=== PATIENT | male | born 1975 | race Caucasian/White ===

== ENCOUNTER 2022-12-15 16:55 | Inpatient (IN) | payer OTHER, SELFPAY ==
[2022-12-15 17:02] VITALS: BP 156/88; PULSE 51; RESP 17; TEMP 37.4; O2SAT 99; BMI 29.7
--- NOTE | 2022-12-15 17:10 | ED_ITS ---
HPI - Abdominal Pain General Chief Complaint: Abdominal Pain Stated Complaint: Poss appendicitis Time Seen by Provider: 12/15/22 17:09 Source: patient Mode of arrival: Family Vehicle Limitations: no limitations History of Present Illness HPI narrative: This is a 47-year-old male who presents with abdominal pain come right lower quadrant in nature that started last night about 5:00 p.m.. He is had a temp up to 100.2 F, no nausea or vomiting. He did have a bowel movement he describes it as dark but not black. No bright red blood. No dysuria urgency or frequency. Patient states he was massaging his belly to try to make it feel better and noticed right lower quadrant pain last night which has been persistent. He went to his primary care team they ordered a CT abdomen pelvis which showed appendicitis changes. Patient denies any medical issues otherwise. No daily medications. No prior surgeries other than vasectomy. No known drug allergies. No tobacco, 2-3 cans of beer nightly, no illicit. Related Data Home Medications Medication Instructions Recorded Confirmed No Known Home Medications 12/15/22 12/15/22 Allergies Allergy/AdvReac Type Severity Reaction Status Date / Time No Known Drug Allergies Allergy Verified 12/15/22 17:09 Review of Systems Review of Systems ROS Unobtainable: All systems reviewed & are unremarkable except as noted in HPI and below Patient History Social History household members: spouse Smoking Status: Never smoker alcohol intake: current Smoking Status: Never smoker alcohol intake frequency: 3 or more drinks per day Alcohol type: beer Substance Use Type: does not use Exam Narrative Exam Narrative: GENERAL: Alert and oriented x three, male in mild distress. HEENT: Head normocephalic, atraumatic, EOMI, pupils reactive, face symmetric, moist mucous membranes NECK: Supple, full range of motion CARDIOVASCULAR: Regular rate and rhythm without murmurs, rubs or gallops. RESPIRATORY: Breath sounds equal bilaterally, no wheezes rales or rhonchi. ABDOMEN: Soft, positive right lower quadrant tenderness. Normoactive bowel sounds all 4 quadrants. No guarding or rebound, rigidity, no mass : No CVA tenderness EXTREMITIES: Normal range of motion, no clubbing or edema. Neurovascularly intact NEUROLOGICAL: Cranial nerves II through XII grossly intact. Moving all e xtremities SKIN: Warm, dry, no petechiae, no rashes or lesions. Initial Vital Signs Initial Vital Signs: Vital Signs Temperature 99.3 F 12/15/22 17:02 Pulse Rate 51 L 12/15/22 17:02 Respiratory Rate 17 12/15/22 17:02 Blood Pressure 156/88 H 12/15/22 17:02 Pulse Oximetry 99 12/15/22 17:02 Oxygen Delivery Method Room Air 12/15/22 17:02 Course Orders Ordered: Acetaminophen (Acetaminophen 325 Mg Tablet) 650 mg PO Q6H [facility] Last Admin: 12/16/22 04:47 Dose: 650 mg Documented By: Admin: 12/16/22 00:13 Dose: Not Given Documented By: Admin: 12/15/22 20:16 Dose: 650 mg Documented By: RDAHA Celecoxib (Celecoxib 200 Mg Capsule) 200 mg PO BID [facility] Last Admin: 12/16/22 08:10 Dose: Not Given Documented By: JOSE LUIS Admin: 12/15/22 21:07 Dose: Not Given Documented By: Admin: 12/15/22 20:16 Dose: 200 mg Documented By: RADHA Gabapentin (Gabapentin 100 Mg Capsule) 300 mg PO BID [facility] Last Admin: 12/16/22 08:10 Dose: 300 mg Documented By: JOSE LUIS Admin: 12/15/22 20:16 Dose: 300 mg Documented By: RADHA Sodium Chloride (Normal Saline 0.9%) 1,000 mls @ 150 mls/hr IV CONT [facility] Last Infusion: 12/15/22 19:06 Dose: 0 mls/hr Documented By: Admin: 12/15/22 18:25 Dose: 150 mls/hr Documented By: DARREL Sodium Chloride (Normal Saline 0.45%) 1,000 mls @ 100 mls/hr IV CONT [facility] Last Admin: 12/16/22 04:50 Dose: 100 mls/hr Documented By: Infusion: 12/16/22 04:50 Dose: 100 mls/hr Documented By: Admin: 12/15/22 20:15 Dose: 100 mls/hr Documented By: RADHA Piperacillin Sod/Tazobactam (Sod 3.375 gm/ Sodium Chloride) 100 mls @ 25 mls/hr IV Q8H [facility] Last Infusion: 12/16/22 06:15 Dose: 0 mls/hr Documented By: Admin: 12/16/22 02:05 Dose: 25 mls/hr Documented By: Infusion: 12/15/22 19:06 Dose: 0 mls/hr Documented By: Admin: 12/15/22 18:27 Dose: 25 mls/hr Documented By: DARREL Morphine Sulfate (Morphine 4 Mg/Ml Inj) 3 mg IV Q4HR PRN PRN Reason: Pain, Severe (7-10) Naloxone HCl (Naloxone 0.4 Mg/Ml Vial) 0.2 mg IV Q2MIN PRN PRN Reason: Opiate Reversal Ondansetron HCl (Ondansetron 4 Mg/2 Ml Inj) 4 mg IV Q6HR PRN PRN Reason: Nausea And Vomiting Ondansetron HCl (Ondansetron 4 Mg/2 Ml Inj) 4 mg IV Q8HR PRN PRN Reason: Nausea And Vomiting Oxycodone HCl (Oxycodone Ir 5 Mg Tablet) 5 mg PO Q3H PRN PRN Reason: Pain, Moderate (4-6) Last Admin: 12/16/22 08:09 Dose: 5 mg Documented By: JOSE LUIS Admin: 12/16/22 04:48 Dose: 5 mg Documented By: Admin: 12/15/22 22:49 Dose: 5 mg Documented By: Admin: 12/15/22 19:01 Dose: 5 mg Documented By: JOSE Discontinued Medications Piperacillin Sod/Tazobactam (Sod 4.5 gm/ Sodium Chloride) 100 mls @ 200 mls/hr IV NOW ONE Stop: 12/15/22 17:10 Last Admin: 12/15/22 21:06 Dose: Not Given Documented By: RADHA Ketorolac Tromethamine (Ketorolac 30 Mg/Ml Vial) 15 mg IV Q6H [facility] Stop: 12/20/22 17:10 Scopolamine (Scopolamine 1 Patch) 1 patch TOP NOW ONE Stop: 12/15/22 17:42 Last Admin: 12/15/22 20:15 Dose: 1 patch Documented By: RADHA Vital Signs Vital signs: Vital Signs - 8 hr 12/15/22 17:02 Temperature 99.3 F Pulse Rate 51 L Respiratory Rate 17 Blood Pressure 156/88 H Pulse Oximetry 99 Oxygen Delivery Method Room Air MDM - Abdominal Pain Lab Data 12/15/22 17:21 12/15/22 19:01 Labs: Lab Results 12/15/22 Range/Units 17:21 WBC 9.6 (4.5-11.0) X10^3/uL RBC 4.60 (4.5-5.9) X10^6/uL Hgb 14.3 (13.5-17.5) g/dL Hct 40.2 L (41-53) % MCV 87.5 (80-100) fL MCH 31.2 (26-34) PG MCHC 35.6 (30-36) % RDW 14.0 (11.6-14.8) % Plt Count 138 L (150-400) X10^3/uL Neut % (Auto) 78.9 H (50-75) % Lymph % (Auto) 12.8 L (25-40) % [place] % (Auto) 7.7 (3-14) % Eos % (Auto) 0.2 L (2-4) % Baso % (Auto) 0.4 (0-2) % Neut # (Auto) 7600 H (8583-2334) /uL Lymph # (Auto) 1200 (3238-8650) /uL [place] # (Auto) 700 (0-900) /uL Eos # (Auto) 0 (0-450) /uL Baso # (Auto) 0 (0-100) /uL Imaging Data CT scan - abdomen/pelvis: Radiologist's Impression: Outpatient CT shows 1 cm dilated appendicitis, stranding, appendicolith and changes consistent with a appendicitis. CT imaging was pulled from [facility] I am able to review images as well as report. MDM Narrative Medical decision making narrative: 47-year-old male presents with complaint of right lower quadrant pain CT imaging does show appendicitis. Patient had had labs today CBC CMP and lipase were included. Patient states pain currently controlled but if has to wait till tomorrow for surgery would ask for PRN pain medication. Spoke with Dr. Kaur, general surgery: Patient accepted for surgery plan for 9 or 9:30 a.m. most likely in the OR tomorrow. Dr. Kaur has already reviewed his images. Discharge Plan Departure Patient Disposition: Admitted as Observation Clinical Impression: Acute appendicitis Admit Date/Time: 12/15/22 17:21 Admit Provider: Farhana Kaur
[2022-12-15 17:35] LABS: Add Manual Diff / Slide Review NO; Basophils Absolute Auto 0 /uL (0-100); Basophils Percent Auto 0.4 % (0-2); Eosinophils Absolute Auto 0 /uL (0-450); Eosinophils Percent Auto 0.2 % (2-4); Hematocrit 40.2 % (41-53); Hemoglobin 14.3 g/dL (13.5-17.5); Lymphocytes Absolute Auto 1200 /uL (1100-4500); Lymphocytes Percent Auto 12.8 % (25-40); Mean Corpuscular HGB Conc 35.6 % (30-36); Mean Corpuscular Hemoglobin 31.2 PG (26-34); Mean Corpuscular Volume 87.5 fL (80-100); Monocytes Absolute Auto 700 /uL (0-900); Monocytes Percent Auto 7.7 % (3-14); Neutrophils Absolute Auto 7600 /uL (1500-7000); Neutrophils Percent Auto 78.9 % (50-75); Platelet Count 138 X10^3/uL (150-400); White Blood Cell Count 9.6 X10^3/uL (4.5-11.0)
[2022-12-15 17:41] VITALS: BMI 29.7
[2022-12-15] MEDS: SODIUM CHLORIDE 0.9% 1,000 ML 150 ML IV (18:25)
[2022-12-15] MEDS: PIPERACILLIN/TAZO 3.375 GM in SODIUM CHLORIDE 0.9% 100 ML IV (18:27)
[2022-12-15] MEDS: OXYCODONE IR 5 MG TABLET PO ×2 (19:01→22:49)
[2022-12-15 19:31] LABS: Alanine Aminotransferase 28 IU/L (<50); Albumin Globulin Ratio 1.4 (1.0-2.8); Alkaline Phosphatase 51 U/L (38-126); Aspartate Aminotransferase 22 IU/L (17-59); BUN Creatinine Ratio 11.1 (6-22); Bilirubin Total 1.7 mg/dL (0.2-1.3); Blood Urea Nitrogen 9 mg/dL (9-20); Calcium 8.7 mg/dL (8.4-10.2); Carbon Dioxide 29 mmol/L (22-32); Chloride 101 mmol/L (98-107); Estimated Glomerular Filt Rate > 60 mL/min (>60); Globulin 2.8 g/dL (1.7-4.1); Glucose 99 mg/dL (70-100); HEMOLYSIS < 15 (0-50); Lipase 23 U/L (23-300); Potassium 3.9 mmol/L (3.4-5.1); Sodium 136 mmol/L (137-145); Total Protein 6.8 g/dL (6.3-8.2)
[2022-12-15 20:00] VITALS: BP 141/84; PULSE 90; RESP 18; TEMP 37.5; O2SAT 98
[2022-12-15] MEDS: SODIUM CHLORIDE 0.45% 1,000 ML 100 ML IV (20:15)
[2022-12-15] MEDS: SCOPOLAMINE 1 PATCH TOP (20:15)
[2022-12-15] MEDS: CELECOXIB 200 MG CAPSULE PO (20:16)
[2022-12-15] MEDS: GABAPENTIN 100 MG CAPSULE 300 MG PO (20:16)
[2022-12-15] MEDS: ACETAMINOPHEN 325 MG TABLET 650 MG PO (20:16)
[2022-12-15 21:17] LABS: MRSA (Nasal) PCR Not Detected (Not Detect)
--- NOTE | 2022-12-15 21:34 | PC.ADMIT ---
[address] Admission Note: The patient,Abraham Hopkins,47 y/o, was given written information regarding hospital policies, unit procedures and contact persons. Patient's smoking status: Never smoker. Vital Signs - 8 hr 12/15/22 17:02 12/15/22 20:00 12/15/22 20:00 Temperature 99.3 F 99.5 F Pulse Rate 51 L 90 Respiratory Rate 17 18 Blood Pressure 156/88 H 141/84 H Pulse Oximetry 99 98 Oxygen Delivery Method Room Air Room Air Oxygen Flow Rate 0 12/15/22 20:00 Temperature Pulse Rate Respiratory Rate Blood Pressure Pulse Oximetry 98 Oxygen Delivery Method Room Air Oxygen Flow Rate Patient admitted to Room 226 at 1930, A/Ox4, ambulating to bed. IVF started as ordered, scheduled PO meds given with pudding, denies nausea, Scop patch placed behind Rt ear. Oxycodone given in ED prior to admit, rates pain 33-4/10. VSS. Educated to room and Plan of Care for night. at bedside, will take wallet and valuable with her.
[2022-12-16] VITALS (19 sets, daily range): BP systolic 100–127; BP diastolic 59–85; PULSE 74–105; RESP 12–20; TEMP 36.7–39.3; O2SAT 92–96; BMI 29.8
--- NOTE | 2022-12-16 | PATH_ITS ---
[facility] Accession Number: [id number] No. of containers..01 Tissue . 01 Material submitted: . appendix - APPENDIX . 01 Diagnosis: Vermiform Appendix, Appendectomy: Acute transmural appendicitis and periappendicitis with perforation. Negative for neoplasia. MRV 12/28/20222020 Local . 01 Electronically signed: . Farhana Karimi MD, Pathologist NPI- [id number] . 01 Gross description: . The specimen is received in formalin labeled with the patient's name, , and appendix and consists of a vermiform appendix measuring 6.6 cm in length x 0.9 cm in average diameter with mesoappendix extending out to 1.7 cm. The serosa is diffusely roughened with a full-thickness defect noted measuring 0.2 cm in greatest dimension. The margin is inked blue. Sectioning reveals the lumen to be filled with red-brown semi-solid material and average 0.3 cm in diameter. The wray are crowell-salguero and average 0.3 cm thick with no lesions grossly identified. Division Operations Manager sections to include the margin, one-half of the bisected distal tip, and cross-section of area of perforation are submitted in cassette A1. ([id number]) /[facility] 12/17/20222 Local . 01 Pathologist provided ICD-10: K35.80 . 01 CPT . 638224 Specimen Comment: A courtesy copy of this report has been sent to [phone] Performed at: 01 [facility] [address] [place] [address] Suite [facility], [place], [place] [id number] MD Ja Montes MD Phone: [phone]
[2022-12-16] MEDS: PIPERACILLIN/TAZO 3.375 GM in SODIUM CHLORIDE 0.9% 100 ML IV ×3 (02:05→18:54)
[2022-12-16] MEDS: ACETAMINOPHEN 325 MG TABLET 650 MG PO ×4 (04:47→23:10)
[2022-12-16] MEDS: OXYCODONE IR 5 MG TABLET PO ×5 (04:48→20:35)
[2022-12-16] MEDS: SODIUM CHLORIDE 0.45% 1,000 ML 100 ML IV (04:50)
--- NOTE | 2022-12-16 08:00 | PM.HP.1 ---
History of Present Illness History of Present Illness Date Patient Seen: 12/16/22 Time Patient Seen: 08:00 Date of Onset of Symptoms: 12/14/22 Chief complaint: Poss appendicitis Narrative: Abdominal pain starting Wednesday. Sharp and focal to RLQ, did not improve. [place] unwell. [facility]scan at [facility] that I reviewed shows appendicitis with possible perforation, no abscess, no phlegmon. PFS Social History household members: spouse Smoking Status: Never smoker alcohol intake: current Meds Home Medications and Allergies Home Medications Medication Instructions Recorded Confirmed Type No Known Home Medications 12/15/22 12/15/22 History Allergies Allergy/AdvReac Type Severity Reaction Status Date / Time No Known Drug Allergies Allergy Verified 12/15/22 17:09 Review of Systems Review of Systems ROS: Yes All systems reviewed with the patient and are negative except as otherwise documented Exam Vital Signs (past 8 hours): - 12/16/22 04:47 12/16/22 04:48 12/16/22 04:00 Temperature 102.8 F H 102.8 F H 102.3 F H Pulse Rate 105 H Respiratory Rate 17 Blood Pressure 127/69 Pulse Oximetry 94 Oxygen Flow Rate 0 12/16/22 06:26 12/16/22 05:25 12/16/22 05:15 Temperature 99.0 F 101.4 F H 101.0 F H Pulse Rate Respiratory Rate Blood Pressure Pulse Oximetry Oxygen Flow Rate Oxygen Delivery Method Room Air Oxygen Flow Rate 0 Const General: cooperative and healthy appearing Nutritional Appearance: average body habitus [facility] Head: normocephalic and atraumatic Ears: hearing grossly normal bilaterally Eyes Sclera: sclerae normal Neck Neck: trachea midline Resp Effort & Inspection: normal respiratory effort and able to speak in complete sentences Cardio Rate: regular rate GI Palpation: soft and tender (RLQ focal tenderness) Skin General: turgor normal Neuro General: patient alert, patient awake and patient oriented x3 Cognition: normal cognition Psych Mental Status: mental status grossly normal Judgment: judgment good Objective Labs 12/15/22 17:21 12/15/22 19:01 Labs: Laboratory Results - last 24 hr 12/15/22 12/15/22 12/15/22 17:21 19:01 19:54 WBC 9.6 RBC 4.60 Hgb 14.3 Hct 40.2 L MCV 87.5 MCH 31.2 MCHC 35.6 RDW 14.0 Plt Count 138 L Neut % (Auto) 78.9 H Lymph % (Auto) 12.8 L [place] % (Auto) 7.7 Eos % (Auto) 0.2 L Baso % (Auto) 0.4 Neut # (Auto) 7600 H Lymph # (Auto) 1200 [place] # (Auto) 700 Eos # (Auto) 0 Baso # (Auto) 0 Sodium 136 L Potassium 3.9 Chloride 101 Carbon Dioxide 29 BUN 9 Creatinine 0.81 Estimated GFR > 60 BUN/Creatinine Ratio 11.1 Glucose 99 Calcium 8.7 Total Bilirubin 1.7 H AST 22 ALT 28 Alkaline Phosphatase 51 Total Protein 6.8 Albumin 4.0 Globulin 2.8 Albumin/Globulin Ratio 1.4 Lipase 23 Nasal Screen MRSA (PCR) Not detected Assessment & Plan Assessment & Plan narrative: Appendicitis with possible rupture. Plan: Lap appy Time Spent With Patient Time with patient: less than 30 minutes Quality VTE Deep Vein Thrombosis/Pulmonary Embolism Present on Admission: No
[2022-12-16] MEDS: GABAPENTIN 100 MG CAPSULE 300 MG PO ×2 (08:10→20:34)
[2022-12-16] MEDS: CELECOXIB 200 MG CAPSULE PO ×2 (09:26→20:34)
[2022-12-16] MEDS: LACTATED RINGERS 1,000 ML 42 ML IV (10:24)
--- NOTE | 2022-12-16 10:28 | SUR.HOLD ---
Oral temperature 102.2; asymptomatic; notified CURTIS Dia. Verbal orders to give next dose of Tylenol 650 mg po.
--- NOTE | 2022-12-16 11:21 | SUR.OPER ---
Supine on padded OR bed, head on pillow, left arm padded and tucked at side, legs uncrossed, safety belt at thigh, tape over blanket over lower legs .
[2022-12-16] MEDS: BUPIVACAINE 0.5% (PF) 30 ML, EPINEPHrine 0.15 MG INJ (11:29)
--- NOTE | 2022-12-16 11:46 | P.OP_ITS ---
Operative Date/Time/Diagnoses Date of procedure: 12/16/22 Time of procedure: 11:46 Pre-op diagnosis: Ruptured appendicitis Post-op diagnosis: same Procedure & Clinicians Procedure: Laparoscopic appendectomy Same procedure as scheduled: Yes Indications: Ruptured appendicitis Surgeon: Farhana Kaur Screen Cutter And Trimmer: Rod Jo Anesthesia Type: General and Local Operative Notes Findings: Ruptured appendicitis, contained Closure Type: primary Specimen(s): none sent (Appendix) Applied: drain(s) (#15 ) Estimated Blood Loss (mL): 30 Blood products transfused: none Procedure in detail: Preop diagnosis: Ruptured appendicitis Postop diagnosis: Same Operative procedure: Laparoscopic appendectomy Surgeon: Zarina Kaur MD triage assistant: CHATO Zimmer Anesthetic: General with ET tube intubation along with local Findings: Gangrenous, contained ruptured appendicitis Procedure: Patient placed in a supine position. Prepped and draped sterile fashion to expose his abdomen. Infraumbilical port site placed using open technique a 12 mm port. Insufflation began all other ports placed under direct vision. This included a 5 mm port in the suprapubic area and a 5 mm port in the left lower abdomen. Appendix was identified to be in a retrocolic position. Attempts were made to mobilize the appendix with much difficulty, I then chose to do a window at the base of the appendix amputate with AMPARO stapling device, and proceed with a retrograde mobilization. Mesentery was taken down with electrocautery. We had good hemostasis at the end of the procedure. I have some concerns of the staple line in that the micro perforation was in close proximity. However the integrity appears to be solid. Surrounding blood and purulent material was addressed by suction but not irrigation. I also placed a 15 Khmer drain into the pelvis extending up along the right colic gutter. I then removed all ports after having placed the appendix into an Endo-Catch bag pulled through the infraumbilical port site intact. Closure consisted of interrupted 0 Vicryl for fascial closure of the infraumbilical port site. Skin was closed a running 4-0 Monocryl. Steri-Strips and sterile dressings were placed. Patient was awakened, extubated, taken to recovery room in stable condition. Needle, instrument, sponge counts were correct. Blood loss: 30 mL Specimen: Appendix Complications: none Post-operative Condition: stable Disposition: PACU
--- NOTE | 2022-12-16 15:31 | CM.DANOTE ---
DCP Assessment Note; Patient is a 47yo male here following acute appendicitis and a lap appy with Dr. Kaur on 12/16. PCP Dr Renee Payer family health plan and self pay NURSE COORDINATOR reviewed EMR. NURSE COORDINATOR entered room and introduced self and role. Patient was sitting up in bed and appeared A/Ox4. Patient was accompanied by spouse Nisha ([phone]). Patient is active and independent at baseline. Lives at home with spouse and 2 sons, 10 and 11 yrs old (currently staying with a family friend). Patient reports eager to go home. can transport in POV. Patient was hold he would d/c home tomorrow, 12/17. No needs. Plan: dc home with spouse when medically stable, no needs at this time. CM team will continue to follow as needed. EVARISTO Condon Discharge Planning/Care Management CM Discharge Assessment Start: 12/16/22 15:29 Freq: Status: Active Protocol: Document 12/16/22 15:29 (Rec: 12/16/22 15:31 [id number]) Discharge Planning Assessment Assigned Customer Retention Specialist EVARISTO Paz DPOA/Assigned Designee Name Nisha (spouse) Contact Information [phone] Advance Directives? No History Provided By Patient,Family Member,Medical Record Prior Living Arrangements House Household Members spouse,children Comment spouse and their 10 and 11yr old children Type of transporation used prior to Drives own vehicle admit Independent with ADL's Yes Is patient alert and oriented? Yes Barriers to Discharge No Discharge Plan Home Transportation Arrangement family in POV Whiteboard Updated in Patient Room with Yes name and ext. # of Customer Retention Specialist Review Status In Process Next Review Type Continued Stay Review
--- NOTE | 2022-12-16 16:03 | PC.NURSE ---
Resumed care of patient at 1600 upon dowgrade and room transfer from the ICU to room 203. VSS, afebrile on RA. He reports pain8/10 had just received 5mg oxycodone po at 1545 prior to transfer. He is A&OX4, ambulatory, ice pack to abdomen. Continuous monitoring.
--- NOTE | 2022-12-16 18:48 | PC.NURSE ---
Pre/Post op note Pt. down to PACU approx. 1005. Returned to room 226 approx. 1235 in stable condition. VS stable/at baseline. Reporting pain 7-8/10 in lower abdominal area at drain site, given PRN Oxycodone + ice pack and given instructions on splinting abdomen with pillow which helped alleviate pain. Up to bathroom w/ some increase in pain, decreased when back to bed. Transferred pt. to room 203, report given to RN.
[2022-12-16] MEDS: METOCLOPRAMIDE 10 MG/2 ML INJ IV (18:57)
[2022-12-16] MEDS: polyethylene glycoL 3350 17 GM POWD.PACK PO (21:37)
[2022-12-17] MEDS: PIPERACILLIN/TAZO 3.375 GM in SODIUM CHLORIDE 0.9% 100 ML IV ×2 (02:10→10:52)
[2022-12-17] MEDS: ACETAMINOPHEN 325 MG TABLET 650 MG PO ×2 (05:34→11:53)
[2022-12-17] MEDS: OXYCODONE IR 5 MG TABLET PO ×3 (05:35→13:46)
[2022-12-17 05:41] VITALS: BP 100/61; PULSE 65; RESP 18; TEMP 37.1; O2SAT 98
[2022-12-17 06:08] LABS: Add Manual Diff / Slide Review NO; Basophils Absolute Auto 0 /uL (0-100); Eosinophils Absolute Auto 0 /uL (0-450); Hematocrit 34.4 % (41-53); Hemoglobin 12.2 g/dL (13.5-17.5); Lymphocytes Absolute Auto 500 /uL (1100-4500); Lymphocytes Percent Auto 5.6 % (25-40); Mean Corpuscular HGB Conc 35.5 % (30-36); Mean Corpuscular Hemoglobin 31.4 PG (26-34); Mean Corpuscular Volume 88.4 fL (80-100); Monocytes Absolute Auto 500 /uL (0-900); Monocytes Percent Auto 5.2 % (3-14); Neutrophils Absolute Auto 8400 /uL (1500-7000); Neutrophils Percent Auto 89.2 % (50-75); Platelet Count 114 X10^3/uL (150-400); Red Blood Cell Count 3.89 X10^6/uL (4.5-5.9); Red Cell Distribution Width 14.2 % (11.6-14.8); White Blood Cell Count 9.4 X10^3/uL (4.5-11.0)
[2022-12-17] MEDS: CELECOXIB 200 MG CAPSULE PO (08:42)
[2022-12-17] MEDS: GABAPENTIN 100 MG CAPSULE 300 MG PO (08:42)
[2022-12-17] MEDS: polyethylene glycoL 3350 17 GM POWD.PACK PO (08:43)
[2022-12-17 13:00] VITALS: BP 100/51; PULSE 74; RESP 16; O2SAT 97
--- NOTE | 2022-12-17 14:33 | PM.PNPO.1 ---
Subjective Subjective Date Patient Seen: 12/17/22 Time Patient Seen: 14:33 Interval history: feels good Exam Vital Signs (past 8 hours): Oxygen Delivery Method Room Air Oxygen Flow Rate 0 Narrative Exam Narrative: abdomen benign and drain is serosang Objective Labs 12/17/22 05:45 12/15/22 19:01 Labs: Laboratory Results - last 24 hr 12/17/22 05:45 WBC 9.4 RBC 3.89 L Hgb 12.2 L Hct 34.4 L MCV 88.4 MCH 31.4 MCHC 35.5 RDW 14.2 Plt Count 114 L Neut % (Auto) 89.2 H Lymph % (Auto) 5.6 L [place] % (Auto) 5.2 Eos % (Auto) 0.0 L Baso % (Auto) 0.0 Neut # (Auto) 8400 H Lymph # (Auto) 500 L [place] # (Auto) 500 Eos # (Auto) 0 Baso # (Auto) 0 PFSH Social History household members: spouse and children Smoking Status: Never smoker alcohol intake: current Assessment & Plan Post-op Postoperative Procedures: Procedures Operation Date: 12/16/22 10:30 Actual Procedure Side Surgeon p Laparoscopic Appendectomy Not Applicable Farhana Kaur MD Postoperative day: 1 Postoperative status: doing well Postoperative plan narrative: Remove drain switch to po antibiotics for 5 days discharge home Quality VTE Deep Vein Thrombosis/Pulmonary Embolism Present on Admission: No
--- NOTE | 2022-12-17 14:34 | P.DS_ITS ---
History of Present Illness History of Present Illness Date Patient Seen: 12/17/22 Time Patient Seen: 14:35 Date of Onset of Symptoms: 12/14/22 Chief complaint: Poss appendicitis Narrative: Abdominal pain starting Wednesday. Sharp and focal to RLQ, did not improve. [place] unwell. [facility]scan at [facility] that I reviewed shows appendicitis with possible perforation, no abscess, no phlegmon. Discharge Providers Provider Date of admission: 12/15/22 17:21 Discharge Date: 12/17/22 Discharge provider: Farhana Kaur MD Summary Hospital Course Discharge Diagnosis: ruptured appendicitis Hospital Course: OR for lap appy, IV antibiotics Status at Discharge Cognitive/behavioral status at discharge: at baseline, oriented Functional status at discharge: independent ambulation Overall status at discharge: patient is progressing back to baseline Time Spent with Patient Time spent: Less than 30 minutes Exam Vital Signs (past 8 hours): Oxygen Delivery Method Room Air Oxygen Flow Rate 0 Narrative Exam Narrative: abdomen benign Objective Labs 12/17/22 05:45 12/15/22 19:01 Labs: Laboratory Results - last 24 hr 12/17/22 05:45 WBC 9.4 RBC 3.89 L Hgb 12.2 L Hct 34.4 L MCV 88.4 MCH 31.4 MCHC 35.5 RDW 14.2 Plt Count 114 L Neut % (Auto) 89.2 H Lymph % (Auto) 5.6 L [place] % (Auto) 5.2 Eos % (Auto) 0.0 L Baso % (Auto) 0.0 Neut # (Auto) 8400 H Lymph # (Auto) 500 L [place] # (Auto) 500 Eos # (Auto) 0 Baso # (Auto) 0 PFSH Social History household members: spouse and children Smoking Status: Never smoker alcohol intake: current Discharge Assessment & Plan Assessment and Plan Assessment: s/p lap appy for ruptured appendicitis Plan of Treatment: home on 5 days Augmentin Discharge Plan Discharge Plan Patient Disposition: Home Discharge orders & Medications Prescriptions: New celecoxib [Celebrex] 200 mg Capsule 200 mg PO BID Qty: 20 0RF amoxicillin-pot clavulanate 875-125 mg Tablet 1 tab PO BID Qty: 10 0RF oxycodone 5 mg Tablet 5 mg PO Q3H PRN (Reason: Pain, Moderate (4-6)) Qty: 15 0RF Follow up/Referrals: Farhana Kaur MD [Physician] - Diet/Activity/Treatments Diet: Diet as Tolerated Visit Report/Discharge Packet Instructions: DI for an Appendectomy, DI for Laparoscopy, DI for Prescription Opioid Use Stand Alone Forms: Patient Portal/API, Surgery Discharge Discharge Data Attending Provider: Farhana Kaur Admit Date/Time: 12/15/22 17:21 Quality VTE Deep Vein Thrombosis/Pulmonary Embolism Present on Admission: No
--- NOTE | 2022-12-17 16:33 | PC.NURSE ---
Day shift: Discharge instructions gone over with patient. Pt stated understanding. Pulled HAILY drain and placed gauze + tegaderm over the top. Minimal drainage. All other lap incision sites CDI. PIV d/c'ed prior to discharge. Pt has all belongings with him and escorted to exit via w/c with BRENNEN Angelo where Pt's picked him up.
== END 2022-12-17 15:30 | disposition home or self-care (01) | DRG 340 ==
LOC: ED 17:09 → AC 17:22 → ICU 18:04 → AC 12-17 08:47 → ICU 03-10 15:01
PROVIDERS: Admitting Provider Surgery; Emergency Provider Emergency Medicine; Referring Provider Emergency Medicine; Visit Provider Surgery
PROC: 0DTJ4ZZ Resection of Appendix, Percutaneous Endoscopic Approach (ICD-10-PCS; CPT 44970; principal; 2022-12-16 10:30)
DX: K35.32 Acute appendicitis with perforation, localized peritonitis, and gangrene, without abscess (principal)
CPT/HCPCS: 44970; 36415; 36592; 80053; 83690; 85025; 87797; 96361; 96365; 96366; 96375; 99221; 99282; 99284; G0378; J0171; J0330; J1100; J2405; J2543; J2704; J2765; J3010; J7050

== ENCOUNTER → 2022-12-31 14:57 | Outpatient (CLI) | payer OTHER, SELFPAY ==
[2022-12-15 17:41] VITALS: BMI 29.7
--- NOTE | 2022-12-31 14:59 | DI.CT.S_ITS ---
PROCEDURE: CT ABDOMEN PELVIS W CON INDICATIONS: abdominal pain after appendectomy TECHNIQUE: After the administration of intravenous contrast, axial sections acquired from the lung bases to the pubic symphysis. Coronal and sagittal reformats were performed. For radiation dose reduction, the following was used: automated exposure control, adjustment of mA and/or kV according to patient size. COMPARISON: [facility], CT, CT ABDOMEN PELVIS WITH CONTRAST, 12/15/2022, 14:11. FINDINGS: Image quality: Excellent. Lung bases: Unremarkable. Heart: No significant findings. ABDOMEN: Liver: Unremarkable. Gallbladder: Unremarkable. Biliary ducts: Unremarkable. Pancreas: Unremarkable. Spleen: Unremarkable. Adrenal Glands: Unremarkable. Kidneys and Ureters: Unremarkable. Bowel and peritoneum: Postsurgical changes are seen from recent appendectomy. There is ill-defined inflammatory fat stranding and edema as well as a small amount of fluid adjacent to the surgical site. No well-defined peripherally enhancing fluid collection is seen. The area of edema/fluid measures up to 7.0 x 5.9 x 4.2 cm in maximum dimensions. Mild bowel wall thickening is seen in the adjacent cecal tip, which is likely reactive. There is no pneumoperitoneum. A few diverticula are seen at the sigmoid colon. No signs of small bowel obstruction. Ventral Wall: No hernias. Abdominal Nodes: No retroperitoneal or mesenteric adenopathy by size criteria. Vessels: Aorta and inferior vena cava are normal in size. PELVIS: Pelvic Organs: Unremarkable. Bladder: Unremarkable. Pelvic Nodes: No enlarged lymph nodes. Miscellaneous: No hernias are seen. Bones: Mild degenerative changes are seen in the spine. IMPRESSION: Postsurgical changes from recent appendectomy. Ill-defined inflammatory fat stranding and fluid are seen adjacent to the cecal tip that is suspicious for phlegmon versus developing abscess, although no well-defined drainable collection is seen at this time. Findings were discussed with the referring physician by telephone at the time of this dictation. Approved by: Alexx Gutierrez M.D. on 12/31/2022 at 16:11
== END ==
PROVIDERS: PCP Family Medicine; Referring Provider Surgery; Visit Provider Surgery
DX: R10.9 Unspecified abdominal pain (principal); K57.30 Diverticulosis of large intestine without perforation or abscess without bleeding; Z98.890 Other specified postprocedural states
CPT/HCPCS: 74177; Q9967

== ENCOUNTER 2023-06-13 13:03 | Emergency (ER) | payer OTHER, SELFPAY ==
[2023-06-13 13:12] VITALS: BP 162/99; PULSE 84; RESP 18; TEMP 36.8; O2SAT 99; BMI 29.7
--- NOTE | 2023-06-13 13:23 | DI.RAD.S_ITS ---
PROCEDURE: XR CHEST 1V INDICATIONS: chest pain TECHNIQUE: One view of the chest was acquired. COMPARISON: None. FINDINGS: Surgical changes and devices: None. Lungs and pleura: Lungs are clear. No pleural effusions or pneumothorax. Mediastinum: Mediastinal contours appear normal. Heart size is normal. Bones and chest wall: No suspicious bony lesions. Overlying soft tissues appear unremarkable. IMPRESSION: No acute cardiopulmonary abnormality is seen. Approved by: Orlando Carrasco M.D. on 06/13/2023 at 13:25
[2023-06-13 13:45] LABS: Add Manual Diff / Slide Review NO; Basophils Absolute Auto 0 /uL (0-100); Basophils Percent Auto 0.3 % (0-2); Eosinophils Absolute Auto 0 /uL (0-450); Eosinophils Percent Auto 0.2 % (2-4); Hematocrit 39.3 % (41-53); Hemoglobin 13.9 g/dL (13.5-17.5); Lymphocytes Absolute Auto 1000 /uL (1100-4500); Lymphocytes Percent Auto 11.7 % (25-40); Mean Corpuscular HGB Conc 35.3 % (30-36); Mean Corpuscular Volume 90.4 fL (80-100); Monocytes Absolute Auto 600 /uL (0-900); Monocytes Percent Auto 7.4 % (3-14); Neutrophils Absolute Auto 6800 /uL (1500-7000); Neutrophils Percent Auto 80.4 % (50-75); Platelet Count 142 X10^3/uL (150-400); Red Blood Cell Count 4.34 X10^6/uL (4.5-5.9); White Blood Cell Count 8.5 X10^3/uL (4.5-11.0)
[2023-06-13] MEDS: ASPIRIN 81 MG CHEW TAB 324 MG PO (13:45)
[2023-06-13 13:51] LABS: Prothrombin Time 11.8 SECONDS (9.4-12.5)
[2023-06-13 13:53] LABS: PTT Partial Thromboplastin Tim 33 SECONDS (25.1-36.5)
[2023-06-13 13:56] LABS: Alanine Aminotransferase 26 IU/L (<50); Albumin 4.4 g/dL (3.5-5.0); Albumin Globulin Ratio 1.4 (1.0-2.8); Alkaline Phosphatase 55 U/L (38-126); Aspartate Aminotransferase 23 IU/L (17-59); BUN Creatinine Ratio 11.5 (6-22); Bilirubin Total 1.2 mg/dL (0.2-1.3); Blood Urea Nitrogen 9 mg/dL (9-20); Calcium 9.2 mg/dL (8.4-10.2); Carbon Dioxide 27 mmol/L (22-32); Chloride 104 mmol/L (98-107); Creatine Kinase 46 U/L (55-170); Estimated Glomerular Filt Rate > 60 mL/min (>60); Globulin 3.2 g/dL (1.7-4.1); Glucose 100 mg/dL (70-100); HEMOLYSIS < 15 (0-50); Lipase 33 U/L (23-300); Magnesium 1.9 mg/dL (1.6-2.3); Sodium 140 mmol/L (137-145); Total Protein 7.6 g/dL (6.3-8.2)
[2023-06-13 14:07] LABS: Troponin I < 0.012 ng/mL (0.01-0.034)
--- NOTE | 2023-06-13 14:32 | ED.GENADULT ---
HPI - General Adult General Chief complaint: Hypertension Stated complaint: BP 175/127 at home- concerned Time Seen by Provider: 06/13/23 13:36 Source: patient and family Mode of arrival: Ambulatory Limitations: no limitations History of Present Illness HPI narrative: 47-year-old male with complaint of feeling generally unwell. Patient noted his blood pressure has been high at home he felt concern he has had a little bit of chest discomfort felt lightheaded some nausea urine there. Patient states for the past week he has had occasional sternal discomfort. He states it does not radiate anywhere. He has not had any shortness of breath. No fevers or chills. No cold cough or congestion. He has felt a little lightheaded he has had some nausea but no vomiting but has also felt anxious. He also notes he has been fasting and only eating 1 meal daily 4-5 days a week. He has been doing this for about a month. Patient states some mild constipation, no swelling in extremities. Chest discomfort is not associated with anything, does not notice any alleviating factors is sometimes worsened when he pushes on his xiphoid process but not always. Denies any medical issues. Had prior appendectomy. No known drug allergies. No tobacco, drinks 4 alcoholic drinks daily, no recreational drugs. No known cardiac history in his immediate family dad of complications from pancreatic cancer. He is accompanied by his . Related Data Previous Rx's Medication Instructions Recorded celecoxib 200 mg capsule (Celebrex) 200 mg PO BID #20 caps 12/17/22 levofloxacin 750 mg tablet 750 mg PO DAILY #7 tabs 12/31/22 Allergies Allergy/AdvReac Type Severity Reaction Status Date / Time No Known Drug Allergies Allergy Verified 06/13/23 13:12 Review of Systems Review of Systems ROS Unobtainable: All systems reviewed & are unremarkable except as noted in HPI and below Patient History Surgical History Hx of appendectomy Social History household members: spouse and children Smoking Status: Never smoker alcohol intake: current Smoking Status: Never smoker alcohol intake frequency: 3 or more drinks per day Alcohol type: beer Substance Use Type: does not use Exam Narrative Exam Narrative: GENERAL: Alert and oriented x three, male in mild distress. No diaphoresis. HEENT: Head normocephalic, atraumatic, EOMI, pupils reactive, face symmetric, moist mucous membranes NECK: Supple, full range of motion CARDIOVASCULAR: Regular rate and rhythm without murmurs, rubs or gallops. No reproducible chest pain. No JVD. No swelling in bilateral lower extremities. RESPIRATORY: Breath sounds equal bilaterally, no wheezes rales or rhonchi. No tachypnea or accessory muscle use. Speaks in full sentences ABDOMEN: Soft, nontender. Normoactive bowel sounds all 4 quadrants. No guarding or rebound, rigidity, no mass : No CVA tenderness EXTREMITIES: Normal range of motion, no clubbing or edema. Neurovascularly intact NEUROLOGICAL: Cranial nerves II through XII grossly intact. Moving all extremities SKIN: Warm, dry, no petechiae, no rashes or lesions. Initial Vital Signs Initial Vital Signs: Vital Signs Temperature 98.3 F 06/13/23 13:12 Pulse Rate 84 06/13/23 13:12 Respiratory Rate 18 06/13/23 13:12 Blood Pressure 162/99 H 06/13/23 13:12 Pulse Oximetry 99 06/13/23 13:12 Oxygen Delivery Method Room Air 06/13/23 13:12 Scores HEART Score Heart Score history: Slightly Suspicious Heart Score EKG: Non-Specific repolarization disturbance Heart Score Age: 45-64 years old Heart Score risk factors: No known risk factors Heart Score troponin: < or = to normal limit Heart Score Total: 2 Course Orders Ordered: ED Orders 06/13/23 13:23 XR chest 1V Stat EKG-12 Lead Stat 06/13/23 13:35 Complete Blood Count AUTO DIFF Stat Comprehensive Metabolic Panel Stat Lipase Stat Magnesium Stat PTT Partial Thromboplastin Link Stat Prothrombin Time INR Stat Troponin & CK Cardiac Panel Stat 06/13/23 15:04 EKG-12 Lead Stat 06/13/23 15:30 Trop I [Troponin I] Stat Discontinued Medications Aspirin (Aspirin 81 Mg Chew Tab) 324 mg PO NOW ONE Stop: 06/13/23 13:24 Last Admin: 06/13/23 13:45 Dose: 324 mg Documented By: CTS Vital Signs Vital signs: Vital Signs - 8 hr 06/13/23 13:12 06/13/23 14:54 06/13/23 14:57 Temperature 98.3 F Pulse Rate 84 75 Respiratory Rate 18 22 Blood Pressure 162/99 H 138/88 Pulse Oximetry 99 96 Oxygen Delivery Method Room Air 06/13/23 14:57 06/13/23 15:00 06/13/23 15:00 Temperature Pulse Rate 77 79 Respiratory Rate 22 21 Blood Pressure 151/81 H Pulse Oximetry 96 98 Oxygen Delivery Method Room Air Room Air 06/13/23 15:30 06/13/23 15:30 06/13/23 16:00 Temperature Pulse Rate 72 75 Respiratory Rate 22 21 Blood Pressure 135/91 H Pulse Oximetry 96 96 Oxygen Delivery Method Room Air 06/13/23 16:00 Temperature Pulse Rate Respiratory Rate Blood Pressure 144/92 H Pulse Oximetry Oxygen Delivery Method Medical Decision Making Lab Data 06/13/23 13:35 06/13/23 13:35 Labs: Lab Results 06/13/23 06/13/23 Range/Units 13:35 15:30 WBC 8.5 (4.5-11.0) X10^3/uL RBC 4.34 L (4.5-5.9) X10^6/uL Hgb 13.9 (13.5-17.5) g/dL Hct 39.3 L (41-53) % MCV 90.4 (80-100) fL MCH 32.0 (26-34) PG MCHC 35.3 (30-36) % RDW 14.0 (11.6-14.8) % Plt Count 142 L (150-400) X10^3/uL Neut % (Auto) 80.4 H (50-75) % Lymph % (Auto) 11.7 L (25-40) % [place] % (Auto) 7.4 (3-14) % Eos % (Auto) 0.2 L (2-4) % Baso % (Auto) 0.3 (0-2) % Neut # (Auto) 6800 (1783-2732) /uL Lymph # (Auto) 1000 L (4536-8860) /uL [place] # (Auto) 600 (0-900) /uL Eos # (Auto) 0 (0-450) /uL Baso # (Auto) 0 (0-100) /uL PT 11.8 (9.4-12.5) SECONDS INR 1.0 (0.9-1.3) APTT 33 (25.1-36.5) SECONDS Sodium 140 (137-145) mmol/L Potassium 4.0 (3.4-5.1) mmol/L Chloride 104 (98-107) mmol/L Carbon Dioxide 27 (22-32) mmol/L BUN 9 (9-20) mg/dL Creatinine 0.78 (0.66-1.25) mg/dL Estimated GFR > 60 (>60) mL/min BUN/Creatinine Ratio 11.5 (6-22) Glucose 100 (70-100) mg/dL Calcium 9.2 (8.4-10.2) mg/dL Magnesium 1.9 (1.6-2.3) mg/dL Total Bilirubin 1.2 (0.2-1.3) mg/dL AST 23 (17-59) IU/L ALT 26 (<50) IU/L Alkaline Phosphatase 55 (38-126) U/L Total Creatine Kinase 46 L (55-170) U/L Troponin I < 0.012 < 0.012 (0.01-0.034) ng/mL Total Protein 7.6 (6.3-8.2) g/dL Albumin 4.4 (3.5-5.0) g/dL Globulin 3.2 (1.7-4.1) g/dL Albumin/Globulin Ratio 1.4 (1.0-2.8) Lipase 33 (23-300) U/L Imaging Data Chest x-ray: Radiologist's Impression: [address] [address] XRay Report Signed Patient: Abraham Hopkins MR#: [id number] : 1975 Acct:[id number] Age/Sex: 47 / M Date of Service: 06/13/23 Loc: ED Accession Number: [id number] Procedure: XR chest 1V Ordering Provider: Odette Person D.O. PROCEDURE: XR CHEST 1V INDICATIONS: chest pain TECHNIQUE: One view of the chest was acquired. COMPARISON: None. FINDINGS: Surgical changes and devices: None. Lungs and pleura: Lungs are clear. No pleural effusions or pneumothorax. Mediastinum: Mediastinal contours appear normal. Heart size is normal. Bones and chest wall: No suspicious bony lesions. Overlying soft tissues appear unremarkable. IMPRESSION: No acute cardiopulmonary abnormality is seen. Approved by: Orlando Carrasco M.D. on 06/13/2023 at 13:25 ECG Data Attestation: I personally reviewed and interpreted this ECG as follows: Prior ECG tracings: not available for review Interpretation: Sinus rhythm rate of 74 TN 170 QRS 80 QTC of 408. No acute ST elevation or depression noted. Nonspecific change. EKG 2. Sinus rhythm rate of 70 TN 174 QRS 876 QTC of 401. No acute ST changes noted. MDM Narrative Medical decision making narrative: 47-year-old male no known medical issues does have some chronic alcohol use, no significant past medical history for cardiac issues with complaint of some substernal chest discomfort, some lightheadedness nausea but not in conjunction. Patient has also been noted that he has been fasting approximately 4-5 days per week. Labs show platelets of 142, otherwise appropriate hemoglobin and white count, negative coags, none of creatinine with normal labs otherwise negative LFT and troponin with a negative chest x-ray. EKG shows sinus rhythm with no acute changes. Patient had repeat troponin in his negative Repeat EKG appears similar with no dynamic changes. Heart score is 2 Discussed with patient felt appropriate for discharge home. Discussed following with primary care he does have an option available to him. Discussed return precautions. Discharge Plan Departure Patient Disposition: Home Clinical Impression: Chest pain Activity Restrictions/Additional Instructions: Follow-up for recheck with primary care. I would recommend decreasing alcohol intake, drinks or less daily as the official recommendation. Please return for new or worsening symptoms, lightheadedness or passing out, new or worsening chest pain, shortness of breath, persistent vomiting, new swelling in her extremities or other new or concerning changes. Prescriptions: No Action levofloxacin 750 mg tablet 750 mg PO DAILY Qty: 7 0RF celecoxib [Celebrex] 200 mg Capsule 200 mg PO BID Qty: 20 0RF Referrals: Elsa Renee DO [Primary Care Provider] - Stand Alone Forms: Patient Portal/API
[2023-06-13 14:54] VITALS: PULSE 75; RESP 22; O2SAT 96
[2023-06-13 14:57] VITALS: BP 138/88; PULSE 77; RESP 22; O2SAT 96
[2023-06-13 15:00] VITALS: BP 151/81; PULSE 79; RESP 21; O2SAT 98
[2023-06-13 15:30] VITALS: BP 135/91; PULSE 72; RESP 22; O2SAT 96
[2023-06-13 15:59] LABS: Troponin I < 0.012 ng/mL (0.01-0.034)
[2023-06-13 16:00] VITALS: BP 144/92; PULSE 75; RESP 21; O2SAT 96
== END 2023-06-13 16:12 | disposition home or self-care (01) ==
PROVIDERS: Emergency Provider Emergency Medicine; PCP Family Medicine
DX: R07.9 Chest pain, unspecified (principal)
CPT/HCPCS: 36415; 71045; 80053; 82550; 83690; 83735; 84484; 85025; 85610; 85730; 93005; 93010; 99284

== ENCOUNTER → 2024-05-11 06:53 | Outpatient (CLI) | payer OTHER, SELFPAY ==
--- NOTE | 2024-05-11 06:55 | DI.US.S_ITS ---
PROCEDURE: US ABDOMEN LIMITED INDICATIONS: RUQ abdominal pain TECHNIQUE: Real-time scanning was performed of the abdominal and retroperitoneal organs, with image documentation. COMPARISON: None. FINDINGS: Liver: Liver is normal in size and homogeneous in echotexture, diffusely mildly hyperechoic consistent with fatty infiltration. Gallbladder: No gallstones. No wall thickening. No pericholecystic edema. Negative sonographic Martinez's sign. Biliary ducts: Intrahepatic bile ducts are non-dilated. Extrahepatic bile duct caliber measures 3.3 mm. Normal is 6-7 mm or less in diameter, or 10 mm or less post-cholecystectomy. Pancreas: Visualized portions of the pancreas are sonographically normal. However, bowel gas obscures clear visualization of significant portions of the pancreas. Miscellaneous: No free abdominal fluid. IMPRESSION: Fatty infiltration throughout the liver, but no solid mass or biliary distension is associated. No gallstones seen. Dictated by: Oral Hammer M.D. on 05/11/2024 at 10:56 Approved by: Oral Hammer M.D. on 05/11/2024 at 10:57
== END ==
LOC: US 06:54
PROVIDERS: PCP Family Medicine; Referring Provider Physician Assistant Medical; Visit Provider Physician Assistant Medical
DX: K76.0 Fatty (change of) liver, not elsewhere classified (principal); R10.11 Right upper quadrant pain
CPT/HCPCS: 76705

== ENCOUNTER 2024-08-16 07:08 | Emergency (ER) | payer OTHER, SELFPAY ==
[2024-08-16] VITALS (17 sets, daily range): BP systolic 141–168; BP diastolic 88–96; PULSE 81–95; RESP 17–31; TEMP 37.4; O2SAT 92–95; BMI 28.8
--- NOTE | 2024-08-16 07:24 | DI.RAD.S_ITS ---
PROCEDURE: XR CHEST 1V INDICATIONS: chest pain TECHNIQUE: One view of the chest was acquired. COMPARISON: [facility], CR, XR CHEST 1V, 06/13/2023, 13:34. FINDINGS: Surgical changes and devices: None. Lungs and pleura: Lungs are clear. No pleural effusions or pneumothorax. Mediastinum: Mediastinal contours appear normal. Heart size is normal. Bones and chest wall: No suspicious bony lesions. Overlying soft tissues appear unremarkable. IMPRESSION: No acute cardiopulmonary abnormality is seen. Dictated by: Tomas Egan M.D. on 08/16/2024 at 8:01 Approved by: Tomas Egan M.D. on 08/16/2024 at 8:01
--- NOTE | 2024-08-16 07:28 | EKG_ITS ---
[address] [address] [address] [address] Test Date: 2024-08-16 Pat Name: Abraham Hopkins Department: Room: Gender: Male [employer]: CALLY : 1975 Requested By: Order Number: [id number] Reading MD: Danie Smith MD Measurements Intervals [place] Rate: 85 P: -2 ID: [id number] QRS: -17 QRSD: 90 T: 24 QT: 350 QTc: 416 Interpretive Statements Normal sinus rhythm Electronically Signed On 08-16-2024 7:40:28 PDT by Danie Smith MD
[2024-08-16 07:31] LABS: Add Manual Diff / Slide Review NO; Basophils Absolute Auto 0 /uL (0-100); Basophils Percent Auto 0.5 % (0-2); Eosinophils Absolute Auto 200 /uL (0-450); Eosinophils Percent Auto 2.5 % (2-4); Hematocrit 39.3 % (41-53); Hemoglobin 13.7 g/dL (13.5-17.5); Lymphocytes Absolute Auto 1100 /uL (1100-4500); Lymphocytes Percent Auto 13.6 % (25-40); Mean Corpuscular HGB Conc 34.9 % (30-36); Mean Corpuscular Volume 88.8 fL (80-100); Monocytes Absolute Auto 600 /uL (0-900); Monocytes Percent Auto 8.1 % (3-14); Neutrophils Absolute Auto 5800 /uL (1500-7000); Neutrophils Percent Auto 75.3 % (50-75); Platelet Count 158 X10^3/uL (150-400); Red Blood Cell Count 4.43 X10^6/uL (4.5-5.9); Red Cell Distribution Width 14.3 % (11.6-14.8); White Blood Cell Count 7.8 X10^3/uL (4.5-11.0)
[2024-08-16 07:38] LABS: INR 1.1 (0.9-1.3)
[2024-08-16 07:40] LABS: PTT Partial Thromboplastin Tim 40 SECONDS (25.1-36.5)
--- NOTE | 2024-08-16 07:41 | ED.CHESTPAIN ---
HPI - Chest Pain General Chief Complaint: Chest Pain Stated Complaint: Right wilson pain Time Seen by Provider: 08/16/24 07:41 Source: patient Mode of arrival: Ambulatory Limitations: no limitations History of Present Illness HPI narrative: 49-year-old male no significant past medical history presenting for right-sided chest/right upper quadrant abdominal pain. He states that this started at approximately 1:00 a.m. today. States he has had similar symptoms of this in the past several months ago, he states that the pain really only presents itself whenever he takes a deep breath, he denies any initial trauma not complaining of any other symptoms such as headache visual disturbances nausea vomiting or any other GI/ symptoms at this time. States it is not associated with eating food. Related Data Previous Rx's Medication Instructions Recorded celecoxib 200 mg capsule (Celebrex) 200 mg PO BID #20 caps 12/17/22 levofloxacin 750 mg tablet 750 mg PO DAILY #7 tabs 12/31/22 Allergies Allergy/AdvReac Type Severity Reaction Status Date / Time No Known Drug Allergies Allergy Verified 06/13/23 13:12 Review of Systems Review of Systems Narrative: General: Denies fever, chills, weight loss HEENT: Denies headache, eye drainage, eye irritation, head trauma, sore throat, voice change Cardiovascular: Positive right-sided chest pain, denies palpitations, tachycardia Respiratory: Denies any shortness of breath, cough, wheeze, stridor GI/: Positive right upper quadrant abdominal pain, denies nausea, vomiting, diarrhea, bright red blood per rectum, melanotic stools, urinary frequency, urinary retention, dysuria, hematuria MSK: Denies any joint pain, muscle pains, swelling Skin: Denies any rashes, lesions, discoloration Neuro: Denies any headache, lightheadedness, dizziness, fainting, weakness Psych: Denies SI/HI Patient History Surgical History Hx of appendectomy Social History household members: spouse and children Smoking Status: Never smoker alcohol intake: current Smoking Status: Never smoker alcohol intake frequency: 3 or more drinks per day Alcohol type: beer Exam Narrative Exam Narrative: General: Cooperative, well-developed, not in acute distress HEENT: Normocephalic, atraumatic, PERRLA, normal sclera, eyelids normal Neck: Active full range of motion, atraumatic Chest: Normal to inspection, negative crepitus, no overlying erythema ecchymosis Respiratory: Normal respiratory effort, not in acute respiratory distress, clear to auscultation bilaterally negative cough, wheeze, tachypnea, rhonchi, rales Cardiology: Regular rate rhythm negative gallop, murmur, rubs GI/: No tenderness to palpation, soft, non rigid, normal to inspection, exam deferred MSK: Full active range of motion in all 4 extremities, atraumatic, no tenderness to palpation of any bony prominences Skin: No rashes or lesions noted Neuro: Alert awake oriented x3, moves all 4 extremities spontaneously, cranial nerves intact, able to answer all questions appropriately follows commands appropriately Psych: Cooperative, negative suicidal or homicidal ideations Initial Vital Signs Initial Vital Signs: Vital Signs Pulse Rate 86 08/16/24 07:14 Blood Pressure 153/90 H 08/16/24 07:14 Pulse Oximetry 92 08/16/24 07:14 Oxygen Delivery Method Room Air 08/16/24 07:14 Course Orders Ordered: ED Orders 08/16/24 07:22 Complete Blood Count AUTO DIFF Stat Comprehensive Metabolic Panel Stat D Dimer Stat Lipase Stat Magnesium Stat NT-proBNP (BNP-Adult 18+) Stat PTT Partial Thromboplastin Link Stat Prothrombin Time INR Stat Troponin & CK Cardiac Panel Stat 08/16/24 07:24 XR chest 1V Stat EKG-12 Lead Stat 08/16/24 07:58 CT abdomen pelvis w con Stat 08/16/24 08:09 CT angio chest PE protocol Stat Discontinued Medications Aspirin (Aspirin 81 Mg Chew Tab) 324 mg PO NOW ONE Stop: 08/16/24 07:25 Last Admin: 08/16/24 07:45 Dose: 324 mg Documented By: RB Vital Signs Vital signs: Vital Signs - 8 hr 08/16/24 07:14 08/16/24 07:14 08/16/24 07:23 Temperature 99.4 F Pulse Rate 86 83 Respiratory Rate 18 Blood Pressure 153/90 H 153/90 H Pulse Oximetry 92 92 Oxygen Delivery Method Room Air Room Air 08/16/24 07:30 08/16/24 07:32 08/16/24 07:32 Temperature Pulse Rate 85 90 Respiratory Rate 30 H 31 H Blood Pressure 141/88 H Pulse Oximetry 94 93 Oxygen Delivery Method Room Air Room Air 08/16/24 08:06 08/16/24 08:07 08/16/24 08:07 Temperature Pulse Rate 90 83 Respiratory Rate 23 17 Blood Pressure 159/92 H Pulse Oximetry 94 95 Oxygen Delivery Method Room Air Room Air 08/16/24 08:29 08/16/24 08:29 08/16/24 08:30 Temperature Pulse Rate 95 H Respiratory Rate 27 H Blood Pressure 168/91 H 164/96 H Pulse Oximetry 95 Oxygen Delivery Method Room Air 08/16/24 08:30 08/16/24 09:00 08/16/24 09:00 Temperature Pulse Rate 89 83 Respiratory Rate 27 H 25 H Blood Pressure 155/88 H Pulse Oximetry 94 94 Oxygen Delivery Method Room Air Room Air MDM - Chest Pain Differential Diagnosis Differential diagnosis: Likely pneumothorax, atypical chest pain, st elevation myocardial infarction, costochondritis, chest pain and other (Pneumonia, electrolyte abnormality) Lab Data 08/16/24 07:22 08/16/24 07:22 Labs: Lab Results 08/16/24 Range/Units 07:22 WBC 7.8 (4.5-11.0) X10^3/uL RBC 4.43 L (4.5-5.9) X10^6/uL Hgb 13.7 (13.5-17.5) g/dL Hct 39.3 L (41-53) % MCV 88.8 (80-100) fL MCH 31.0 (26-34) PG MCHC 34.9 (30-36) % RDW 14.3 (11.6-14.8) % Plt Count 158 (150-400) X10^3/uL Neut % (Auto) 75.3 H (50-75) % Lymph % (Auto) 13.6 L (25-40) % Izard % (Auto) 8.1 (3-14) % Eos % (Auto) 2.5 (2-4) % Baso % (Auto) 0.5 (0-2) % Neut # (Auto) 5800 (1503-2138) /uL Lymph # (Auto) 1100 (7712-0982) /uL Izard # (Auto) 600 (0-900) /uL Eos # (Auto) 200 (0-450) /uL Baso # (Auto) 0 (0-100) /uL PT 12.0 (9.4-12.5) SECONDS INR 1.1 (0.9-1.3) APTT 40 H (25.1-36.5) SECONDS D-Dimer 816 H (<500) ng/ml Sodium 140 (137-145) mmol/L Potassium 4.1 (3.4-5.1) mmol/L Chloride 105 (98-107) mmol/L Carbon Dioxide 27 (22-32) mmol/L BUN 13 (9-20) mg/dL Creatinine 0.84 (0.66-1.25) mg/dL Estimated GFR > 60 (>60) mL/min BUN/Creatinine Ratio 15.5 (6-22) Glucose 101 H (70-100) mg/dL Calcium 8.8 (8.4-10.2) mg/dL Magnesium 1.9 (1.6-2.3) mg/dL Total Bilirubin 1.3 (0.2-1.3) mg/dL AST 24 (17-59) IU/L ALT 24 (<50) IU/L Alkaline Phosphatase 64 (38-126) U/L Total Creatine Kinase 50 L (55-170) U/L Troponin I < 0.012 (0.01-0.034) ng/mL NT-Pro-B Natriuret Pep 94 (<125) pg/mL Total Protein 7.8 (6.3-8.2) g/dL Albumin 4.3 (3.5-5.0) g/dL Globulin 3.5 (1.7-4.1) g/dL Albumin/Globulin Ratio 1.2 (1.0-2.8) Lipase 38 (23-300) U/L Imaging Data Chest x-ray: Radiologist's Impression: [address] [address] XRay Report Signed Patient: Abraham Hopkins MR#: [id number] : 1975 Acct:[id number] Age/Sex: 49 / M Date of Service: 08/16/24 Loc: ED Accession Number: [id number] Procedure: XR chest 1V Ordering Provider: Alber Gibbs D.O. PROCEDURE: XR CHEST 1V INDICATIONS: chest pain TECHNIQUE: One view of the chest was acquired. COMPARISON: [facility], CR, XR CHEST 1V, 06/13/2023, 13:34. FINDINGS: Surgical changes and devices: None. Lungs and pleura: Lungs are clear. No pleural effusions or pneumothorax. Mediastinum: Mediastinal contours appear normal. Heart size is normal. Bones and chest wall: No suspicious bony lesions. Overlying soft tissues appear unremarkable. IMPRESSION: No acute cardiopulmonary abnormality is seen. CT scan - abdomen/pelvis: Radiologist's Impression: [address] [address] [address] Scan Report Signed Patient: Abraham Hopkins MR#: [id number] : 1975 Acct:[id number] Age/Sex: 49 / M Date of Service: 08/16/24 Loc: ED Accession Number: [id number] Procedure: CT abdomen pelvis w con Ordering Provider: Alber Gibbs D.O. PROCEDURE: CT ABDOMEN PELVIS W CON INDICATIONS: RUQ abd pain TECHNIQUE: After the administration of intravenous contrast, axial sections acquired from the lung bases to the pubic symphysis. Coronal and sagittal reformats were performed. For radiation dose reduction, the following was used: automated exposure control, adjustment of mA and/or kV according to patient size. COMPARISON: [facility], CT, CT ABDOMEN PELVIS W CON, 12/31/2022, 15:52. FINDINGS: Image quality: Diagnostic. Lower Chest: No significant findings. ABDOMEN: Liver: No solid mass. Mild steatosis. Gallbladder: No radiopaque gallstones or wall thickening. Biliary ducts: No biliary dilation. Pancreas: No ductal dilation. Spleen: Size is within normal limits. Adrenal Glands: No adrenal nodules. Kidneys and Ureters: No hydronephrosis. No solid mass. No complex renal cystic lesion which requires follow up. Stomach and Bowel: Nonobstructive. Short-segment thickening within the mid/distal ascending colon seen on series 2, image 75. No inflammatory change. Peritoneum: No abnormal intraperitoneal fluid. No free air. Ventral Wall: No significant ventral hernia. Abdominal Nodes: No retroperitoneal or mesenteric adenopathy by size criteria. Vessels: Aorta and inferior vena cava are normal in size. PELVIS: Pelvic Organs: Unremarkable. Bladder: No bladder wall thickening, accounting for underdistention. Pelvic Nodes: No enlarged lymph nodes. Miscellaneous: Bilateral fat containing inguinal hernias are seen. Bones: No aggressive osseous abnormality. IMPRESSION: No acute intra-abdominal or pelvic process. Short-segment thickening within the mid ascending colon, nonspecific. No inflammatory change. While this could be secondary to incomplete distention, short interval follow-up is recommended to document resolution exclude presence of mass lesion. CTA PE protocol: Radiologist's Impression: [address] [address] [address] Scan Report Signed Patient: Abraham Hopkins MR#: [id number] : 1975 Acct:[id number] Age/Sex: 49 / M Date of Service: 08/16/24 Loc: ED Accession Number: [id number] Procedure: CT angio chest PE protocol Ordering Provider: Alber Gibbs D.O. PROCEDURE: CT ANGIO CHEST PE PROTOCOL INDICATIONS: elevated ddimer TECHNIQUE: After the administration of intravenous contrast, 2 mm thick sections acquired from the pulmonary apices to the posterior costophrenic angles. 3-dimensional maximum intensity projection (MIP) coronal and sagittal reformats were then acquired through the thorax. For radiation dose reduction, the following was used: automated exposure control, adjustment of mA and/or kV according to patient size. COMPARISON: [facility], CR, XR CHEST 1V, 08/16/2024, 7:20. FINDINGS: Image quality: Diagnostic. Pulmonary arteries: Pulmonary arteries are normal in size, and demonstrate no intraluminal filling defects to suggest central pulmonary embolism. Lower Neck: No enlarged lymph nodes. Thyroid: No thyroid nodules which require sonographic follow up, per consensus guidelines. Axillae: No enlarged lymph nodes. Chest Wall: Unremarkable. Bones: Unremarkable. Lungs and Pleura: Left apical 4 mm nodule series 5, image 34. Minimal effusions/dependent change most notable in the right base. Heart: Heart size is normal. No pericardial effusion. Thoracic Vessels: No aortic aneurysm. Mediastinum and Violeta: No enlarged lymph nodes. Esophagus: No wall thickening. Minimal hiatal hernia. Upper Abdomen: Visualized upper abdomen solid organs and bowel loops appear normal. IMPRESSION: No pulmonary embolus. 4 mm apical pulmonary nodule nonspecific without priors. Recommend interval follow-up as below. Minimal effusion/dependent changes within the bases most notably on the right. ECG Data Interpretation: EKG interpreted by ED physician sinus 85 beats per minute QTC 416 normal axis, nonspecific ST changes no STEMI. MDM Narrative Medical decision making narrative: 49-year-old male without any significant past medical history presenting for right-sided chest/right upper quadrant abdominal pain, started at around 1:00 a.m., states he has had similar symptoms previously was seen here in the emergency room and distal tip? everything was okay. Patient not complaining of any pain currently cough he states that it typically happens whenever he takes? a deep breath. He denies any other symptoms at this time. Lab work without any leukocytosis, Chem panel unremarkable, EKG nonischemic in nature, troponin negative, BNP 94, D-dimer was elevated at 816 therefore CTA chest PE protocol ordered, chest x-ray without any acute cardiopulmonary abnormalities, CT abdomen and pelvis without any acute findings, CTA PE showing no pulmonary embolism but mild/minimal effusion to the base of the right lung, therefore will treat patient with NSAIDs for pleuritis. Did inform patient of all the incidental findings including thickening of the ascending colon and pulmonary nodule will require follow up with primary care. Patient with heart score 0, patient was instructed to follow up with primary care in outpatient setting, was given strict return precautions verbalized understanding of this and agrees to being discharged home with outpatient follow up Discharge Plan Departure Patient Disposition: Home Clinical Impression: Pleuritis Activity Restrictions/Additional Instructions: Please follow up with your primary care doctor Please read the discharge instructions sheet carefully and bring all papers to all doctor follow-up visits, as it may contain information that your doctor may want to see. Disease processes change and evolve, if your symptoms worsen or if you develop any new symptoms that are concerning to you please return for evaluation. Your evaluation today does not show any evidence of any life-threatening/serious illnesses requiring admission to the hospital or surgery. Please follow-up with your doctor for re-evaluation in approximately 1 day. Seek immediate medical attention for any worrisome symptoms. *If you do not have a primary care provider please contact the [facility] Resource line at [phone]. They will ask some questions about your medical history and help get you set up with a doctor in the community. Prescriptions: No Action levofloxacin 750 mg tablet 750 mg PO DAILY Qty: 7 0RF celecoxib [Celebrex] 200 mg Capsule 200 mg PO BID Qty: 20 0RF Referrals: Lloyd Rios MD [Primary Care Provider] - Stand Alone Forms: Patient Portal/API/Survey
[2024-08-16 07:42] LABS: Alanine Aminotransferase 24 IU/L (<50); Albumin 4.3 g/dL (3.5-5.0); Albumin Globulin Ratio 1.2 (1.0-2.8); Alkaline Phosphatase 64 U/L (38-126); Aspartate Aminotransferase 24 IU/L (17-59); BUN Creatinine Ratio 15.5 (6-22); Bilirubin Total 1.3 mg/dL (0.2-1.3); Blood Urea Nitrogen 13 mg/dL (9-20); Calcium 8.8 mg/dL (8.4-10.2); Carbon Dioxide 27 mmol/L (22-32); Chloride 105 mmol/L (98-107); Creatine Kinase 50 U/L (55-170); Estimated Glomerular Filt Rate > 60 mL/min (>60); Globulin 3.5 g/dL (1.7-4.1); Glucose 101 mg/dL (70-100); HEMOLYSIS < 15 (0-50); Lipase 38 U/L (23-300); Magnesium 1.9 mg/dL (1.6-2.3); Potassium 4.1 mmol/L (3.4-5.1); Sodium 140 mmol/L (137-145); Total Protein 7.8 g/dL (6.3-8.2)
[2024-08-16] MEDS: ASPIRIN 81 MG CHEW TAB 324 MG PO (07:45)
[2024-08-16 07:54] LABS: NT-proBNP (BNP-Adult 18+) 94 pg/mL (<125); Troponin I < 0.012 ng/mL (0.01-0.034)
--- NOTE | 2024-08-16 07:58 | DI.CT.S_ITS ---
PROCEDURE: CT ABDOMEN PELVIS W CON INDICATIONS: RUQ abd pain TECHNIQUE: After the administration of intravenous contrast, axial sections acquired from the lung bases to the pubic symphysis. Coronal and sagittal reformats were performed. For radiation dose reduction, the following was used: automated exposure control, adjustment of mA and/or kV according to patient size. COMPARISON: [facility], CT, CT ABDOMEN PELVIS W CON, 12/31/2022, 15:52. FINDINGS: Image quality: Diagnostic. Lower Chest: No significant findings. ABDOMEN: Liver: No solid mass. Mild steatosis. Gallbladder: No radiopaque gallstones or wall thickening. Biliary ducts: No biliary dilation. Pancreas: No ductal dilation. Spleen: Size is within normal limits. Adrenal Glands: No adrenal nodules. Kidneys and Ureters: No hydronephrosis. No solid mass. No complex renal cystic lesion which requires follow up. Stomach and Bowel: Nonobstructive. Short-segment thickening within the mid/distal ascending colon seen on series 2, image 75. No inflammatory change. Peritoneum: No abnormal intraperitoneal fluid. No free air. Ventral Wall: No significant ventral hernia. Abdominal Nodes: No retroperitoneal or mesenteric adenopathy by size criteria. Vessels: Aorta and inferior vena cava are normal in size. PELVIS: Pelvic Organs: Unremarkable. Bladder: No bladder wall thickening, accounting for underdistention. Pelvic Nodes: No enlarged lymph nodes. Miscellaneous: Bilateral fat containing inguinal hernias are seen. Bones: No aggressive osseous abnormality. IMPRESSION: No acute intra-abdominal or pelvic process. Short-segment thickening within the mid ascending colon, nonspecific. No inflammatory change. While this could be secondary to incomplete distention, short interval follow-up is recommended to document resolution exclude presence of mass lesion. Dictated by: Angeli Phan M.D. on 08/16/2024 at 9:50 Approved by: Angeli Phan M.D. on 08/16/2024 at 9:53
[2024-08-16 08:06] LABS: D Dimer 816 ng/ml (<500)
--- NOTE | 2024-08-16 08:09 | DI.CT.S_ITS ---
PROCEDURE: CT ANGIO CHEST PE PROTOCOL INDICATIONS: elevated ddimer TECHNIQUE: After the administration of intravenous contrast, 2 mm thick sections acquired from the pulmonary apices to the posterior costophrenic angles. 3-dimensional maximum intensity projection (MIP) coronal and sagittal reformats were then acquired through the thorax. For radiation dose reduction, the following was used: automated exposure control, adjustment of mA and/or kV according to patient size. COMPARISON: [facility], CR, XR CHEST 1V, 08/16/2024, 7:20. FINDINGS: Image quality: Diagnostic. Pulmonary arteries: Pulmonary arteries are normal in size, and demonstrate no intraluminal filling defects to suggest central pulmonary embolism. Lower Neck: No enlarged lymph nodes. Thyroid: No thyroid nodules which require sonographic follow up, per consensus guidelines. Axillae: No enlarged lymph nodes. Chest Wall: Unremarkable. Bones: Unremarkable. Lungs and Pleura: Left apical 4 mm nodule series 5, image 34. Minimal effusions/dependent change most notable in the right base. Heart: Heart size is normal. No pericardial effusion. Thoracic Vessels: No aortic aneurysm. Mediastinum and Violeta: No enlarged lymph nodes. Esophagus: No wall thickening. Minimal hiatal hernia. Upper Abdomen: Visualized upper abdomen solid organs and bowel loops appear normal. IMPRESSION: No pulmonary embolus. 4 mm apical pulmonary nodule nonspecific without priors. Recommend interval follow-up as below. Minimal effusion/dependent changes within the bases most notably on the right. Fleischner Society criteria for SOLID lung nodule followup. Nodule size (mm)Low-risk patientHigh-risk patient<6 (single or multiple)No routine followup.Optional CT at 12 months. 6-8 (single or multiple)CT at 6-12 months, then optional CT at 18-24 mo.CT at 6-12 months, then CT at 18-24 months. >8 (single)CT, PET-CT, or biopsy at 3 months. Same as for low-risk pts. >8 (multiple)CT at 3-6 months, then optional CT at 18-24 mo.CT at 3-6 months, then CT at 18-24 months. Recommendations do not apply to lung cancer screening, patients with immunosuppression, or patients with known primary cancer. Dictated by: Angeli Phan M.D. on 08/16/2024 at 8:43 Approved by: Angeli Phan M.D. on 08/16/2024 at 9:49
== END 2024-08-16 10:25 | disposition home or self-care (01) ==
PROVIDERS: Emergency Provider Student in an Organized Health Care Education/Training Program; PCP Family Medicine
DX: R09.1 Pleurisy (principal); R10.11 Right upper quadrant pain
CPT/HCPCS: 36415; 71045; 71275; 74177; 80053; 82550; 83690; 83735; 83880; 84484; 85025; 85379; 85610; 85730; 93005; 99284; Q9967

== ENCOUNTER → 2024-09-04 14:33 | Outpatient (CLI) | payer OTHER, SELFPAY ==
--- NOTE | 2024-09-04 14:34 | DI.US.S_ITS ---
PROCEDURE: US SCROTUM INDICATIONS: SCROTAL MASS TECHNIQUE: Real-time scanning was performed of the scrotum and testicles, with image documentation. Color and pulse Doppler interrogation was performed of both testicles. COMPARISON: None. FINDINGS: Right: Testicle is normal in size at 4.5 x 3.5 x 2.6 cm, and homogenous in echotexture. Epididymis is normal in overall size and morphology. Simple cyst at the epididymal head measures 0.8 cm maximum dimension. No hydrocele or varicoceles. Overlying scrotal skin is normal in thickness. Left: Testicle is normal in size at 4.6 x 3.4 x 2.2 cm, and homogeneous in echotexture. Epididymis is normal in overall size and morphology. No hydrocele. Borderline varicocele. Overlying scrotal skin is normal in thickness. Doppler: Color and pulse Doppler demonstrate normal and symmetric arterial flow in both testicles. No inguinal hernia is seen. IMPRESSION: 1. No solid scrotal mass. 0.8 cm simple cyst in the right epididymal head. 2. Borderline left varicocele measuring up to 0.3 cm. 3. No inguinal hernia. Approved by: Alexx Gutierrez M.D. on 09/04/2024 at 16:50
== END ==
LOC: US 14:34
PROVIDERS: PCP Family Medicine; Referring Provider Family Medicine; Visit Provider Family Medicine
DX: N50.89 Other specified disorders of the male genital organs (principal); N50.3 Cyst of epididymis
CPT/HCPCS: 76870